=== PATIENT | female | born 1995 | race African-American/Black ===

== ENCOUNTER 2016-10-26 12:59 | Emergency (ER) | payer OTHER ==
[~2016-10-26] VITALS: Ht 160 cm; Wt 62.0 kg
[~2016-10-26 12:59] MED LIST: ALBU1AER INH
[2016-10-26 13:04] VITALS: BP 136/72; PULSE 71; RESP 16; TEMP 98.9; O2SAT 100
--- NOTE | 2016-10-26 13:16 | PD ---
Physical Exam Date Seen by Provider: Oct 26, 2016 Time Seen by Provider: 13:14 Narrative Pt is a 20 y/o female presenting to the ED with c/o lower abdominal pain. Pain is a 7/10, cramping in nature. LMP was Tuesday last week not consistent with normal cycles and lasting only 2 days. Pain has been ongoing for 1 week. She reports nausea and vomiting as well. VSS Data Data Last Documented VS Vital Signs Date Time Temp Pulse Resp B/P Pulse Ox O2 Delivery O2 Flow Rate FiO2 10/26/16 13:04 98.9 71 16 136/72 100 MDM Supervised Visit with KATE: Sophie Mascorro Oct 26, 2016 13:16
[2016-10-26] MEDS ORDERED: ADDE30TA PO (13:22)
[2016-10-26] MEDS ORDERED: ALBUAER3 INH (13:22)
--- NOTE | 2016-10-26 13:55 | PD ---
HPI Chief Complaint: Abdominal Pain Time Seen by Provider: 13:24 Travel History International Travel<30 days: No Contact w/Intl Traveler<30days: No Traveled to known affect area: No History of Present Illness HPI This is a 20-year-old female who has a history of chlamydia who presents to the emergency department with 2 weeks of lower abdominal pain described as cramping , mild, constant, associated with more white vaginal discharge than normal. She denies any fevers or chills. She denies any dysuria, urgency, frequency or diarrhea. She has felt nauseous and says she's vomited 5 times in the past 2 weeks. She bought some wristbands that she hoped would help with the nausea. She had her last menstrual cycle one week ago and it was somewhat irregular and light. PFSH Past Medical History Asthma: Yes Immunizations Current: Yes Tetanus Vaccination: < 5 Years Influenza Vaccination: No ?: Not LMP: 10/20/2016 only lasted few days and was light : 0 Past Surgical History Surgical History: No Previous Surgery Social History Alcohol Use: Yes Tobacco Use: No Substance Use: No Allergies-Medications (Allergen,Severity, Reaction): Coded Allergies: No Known Allergies (Unverified , 10/26/16) Reported Meds & Prescriptions Reported Meds & Active Scripts Active Reported Proair Hfa 8.5 GM Inh (Albuterol Sulfate) 90 Mcg/Act Aer 2 Puff INH Q4-6H PRN 108 mcg/actuation Adderall (Amphetamine-Dextroamphetamine) 30 Mg Tab 30 Mg PO DAILY Avoid late evening doses. Space doses at least 4 to 6 hours if more than once/day dosing. Review of Systems Except as stated in HPI: all other systems reviewed are Neg Physical Exam Narrative GENERAL:Well appearing, no acute distress SKIN: Focused skin assessment warm and dry. HEAD: Atraumatic. Normocephalic. EYES: Pupils equal and round. No injection or drainage. ENT: Moist mucous membranes NECK: Trachea midline. CARDIOVASCULAR: Regular rate and rhythm. No murmur appreciated. RESPIRATORY: Clear to auscultation. Breath sounds equal bilaterally. GASTROINTESTINAL: Abdomen soft, mildly tender to palpation in the suprapubic region with no rebound or guarding. ARCHIVES SPECIALIST: White thick discharge in the vault with cervical motion tenderness MUSCULOSKELETAL: No obvious deformities. NEUROLOGICAL: Awake and alert. No obvious cranial nerve deficits. Moving all extremities. PSYCHIATRIC: Appropriate mood and affect; insight and judgment normal. Data Data Last Documented VS Vital Signs Date Time Temp Pulse Resp B/P Pulse Ox O2 Delivery O2 Flow Rate FiO2 10/26/16 13:04 98.9 71 16 136/72 100 Orders Urinalysis - C+S If Indicated (10/26/16 13:49) Wet Prep Profile (10/26/16 13:49) Gc And Chlamydia Pcr (10/26/16 13:49) Labs Laboratory Tests Test 10/26/16 10/26/16 13:00 13:51 Urine Color LIGHT-YELLOW Urine Turbidity HAZY Urine pH 7.0 Urine Specific [place] 1.015 Urine Protein NEG mg/dL Urine Glucose (UA) NEG mg/dL Urine Ketones NEG mg/dL Urine Occult Blood NEG Urine Nitrite NEG Urine Bilirubin NEG Urine Urobilinogen LESS THAN 2.0 MG/DL Urine Leukocyte Esterase NEG Urine RBC 1 /hpf Urine WBC LESS THAN 1 /hpf Urine Squamous Epithelial 1 /hpf Cells Urine Amorphous Sediment RARE Urine Bacteria RARE /hpf Urine Mucus FEW /lpf Microscopic Urinalysis Comment CULT NOT INDICATED Clue Cells (Wet Prep) PRESENT Vaginal Trichomonas (Wet Prep) NONE SEEN Vaginal Yeast (Wet Prep) NONE SEEN MDM Medical Decision Making Medical Screen Exam Complete: Yes Emergency Medical Condition: Yes Interpretation(s) afebrile, no tachycardia, normotensive Differential Diagnosis Cervicitis, pelvic inflammatory disease, , ectopic , ovarian cyst Narrative Course This is a 20 year old female who presents to the emergency department with pelvic pain for 2 weeks. she is very well appearing. She does have cervical motion tenderness and discharge on exam. Given she has a history of chlamydia I think it's reasonable to cover her empirically for pelvic inflammatory disease. Given her normal vital signs and benign exam I don't think labs or imaging are warranted at this time. Pt. was discharged home. Diagnosis Primary Impression: Pelvic inflammatory disease Patient Instructions: General Instructions Additional Instructions: If you develop fever, chills, severe abdominal pain, persistent vomiting or inability to eat return to the emergency department. Your pelvic exam today did not include a Pap smear. It is important to followup with a consumer insight manager on a yearly basis to be tested for cervical cancer as we do not do that from the emergency department. If there is a concern that you have sexually transmitted disease, your partner should be tested. You should followup with your consumer insight manager or with the health department to get tested for other sexually transmitted diseases like HIV and syphilis, as we do not test for these in the emergency department Med/Other Pt SpecificInfo: Prescription(s) given Scripts Doxycycline Hyclate 100 Mg [id number] Mg PO BID #28 CAP Ref 0 Prov:Laine Bose MD 10/26/16 Disposition: 01 DISCHARGE HOME Condition: Stable Laine Bose MD Oct 26, 2016 13:55
[2016-10-26 14:21] LABS: BACTERIA, URINE RARE /hpf; BLOOD, URINE NEG (NEG); COMMENT (UR) CULT NOT INDICATED; CULTURE IF INDICATED CULT NOT INDICATED; GLUCOSE,URINE NEG (NEG); KETONE, URINE NEG (NEG); MUCUS URINE FEW /lpf (OCC); NITRITE,URINE NEG (NEG); SQUAMOUS EPITHELIAL CELL URINE 1 /hpf (0-5); URINE COLOR LIGHT-YELLOW (YELLW/STRAW)
[2016-10-26] MEDS ORDERED: DOXY100C PO (14:34)
[2016-10-26] MEDS ORDERED: cefTRIAXone 250 MG VIAL IM ONE (14:45)
[2016-10-26] MEDS ORDERED: LIDOCAINE HCL 1% 50 ML VIAL IM ONE (14:45)
[2016-10-26 15:23] VITALS: BP 125/72
[2016-10-26 16:06] LABS: CHLAMYDIA PCR NOT DETECTED (NOT DETECT); NEISSERIA PCR NOT DETECTED (NOT DETECT)
== END 2016-10-26 15:24 | disposition home or self-care (01) ==
LOC: NEPD 12:59
DX: N73.9 Female pelvic inflammatory disease, unspecified (principal)
CPT/HCPCS: 81001; 87210; 87491; 87591; 96372; 99284; J0696

== ENCOUNTER 2017-07-17 15:49 | Emergency (ER) | payer OTHER ==
[~2017-07-17] VITALS: Ht 160 cm; Wt 61.0 kg
[~2017-07-17 15:49] MED LIST changes: +ADDE30TA PO; -ALBU1AER INH; +ALBUAER3 INH; +DOXY100C PO
[2017-07-17 15:50] VITALS: BP 141/76; PULSE 88; RESP 16; TEMP 98.3; O2SAT 100
--- NOTE | 2017-07-17 16:38 | PD ---
Physical Exam Time Seen by Provider: 16:36 Narrative 21yo F, approximately 11 weeks c/o lower abdominal pain 3 weeks. + Vomiting. Denies fevers. + Abnormal vaginal discharge. No vaginal bleeding. Denies dysuria. LMP April 29. Patient seen in triage. VS reviewed. Awaiting bed placement. See next providers note for final patient disposition. Data Data Last Documented VS Vital Signs Date Time Temp Pulse Resp B/P (MAP) Pulse Ox O2 Delivery O2 Flow Rate FiO2 07/17/17 15:50 98.3 88 16 141/76 (97) 100 MDM Supervised Visit with KATE: Alysha Jean Baptiste Jul 17, 2017 16:37
[2017-07-17] MEDS ORDERED: ACETAMINOPHEN 325 MG TAB PO ONE (17:30)
--- NOTE | 2017-07-17 17:39 | PD ---
HPI Chief Complaint: Related Problem Time Seen by Provider: 16:36 Travel History International Travel<30 days: No Contact w/Intl Traveler<30days: No Traveled to known affect area: No History of Present Illness HPI I saw this patient in triage. 21yo F, approximately 11 weeks c/o lower abdominal pain 3 weeks. + Vomiting. Denies fevers. + Abnormal vaginal discharge. No vaginal bleeding. Denies dysuria. LMP April 29. She does not have an vibratory pile driver. Just recently moved to this area. Pain is sometimes relieved with eating, but then it comes back. No known aggravating factors. Symptoms are moderate in severity. No known allergies. History of asthma. Has no other medical complaints. No other modifying factors or associated signs and symptoms. PFSH Past Medical History Asthma: Yes Immunizations Current: Yes ?: LMP: 04/29/17 : 0 Social History Alcohol Use: Yes Tobacco Use: No Substance Use: No Allergies-Medications (Allergen,Severity, Reaction): Coded Allergies: No Known Allergies (Unverified Adverse Reaction, Unknown, 07/17/17) Reported Meds & Prescriptions Reported Meds & Active Scripts Active Doxycycline Hyclate 100 Mg Cap 100 Mg PO BID Reported Proair Hfa 8.5 GM Inh (Albuterol Sulfate) 90 Mcg/Act Aer 2 Puff INH Q4-6H PRN 108 mcg/actuation Adderall (Amphetamine-Dextroamphetamine) 30 Mg Tab 30 Mg PO DAILY Avoid late evening doses. Space doses at least 4 to 6 hours if more than once/day dosing. Review of Systems Except as stated in HPI: all other systems reviewed are Neg Physical Exam Narrative GENERAL: Well-nourished, well-developed black female female patient, in no acute distress; afebrile, nontoxic-appearing SKIN: Warm and dry. HEAD: Atraumatic. Normocephalic. EYES: Pupils equal and round. No scleral icterus. No injection or drainage. ENT: Mucous membranes pink and moist. NECK: Trachea midline. No lymphadenopathy. CARDIOVASCULAR: Regular rate and rhythm. No murmur appreciated. RESPIRATORY: No accessory muscle use. Clear to auscultation. Breath sounds equal bilaterally. GASTROINTESTINAL: Abdomen soft, non-tender, nondistended. Pelvic region tender to palpation. Hepatic and splenic margins not palpable. No guarding, rigidity, rebound tenderness. PELVIC: Exam done in the presence of a nurse. Speculum exam reveals edematous and erythematous cervix with creamy white, thick, mucopurulent, foul-smelling discharge. Bimanual exam reveals no palpable masses or adnexa tenderness, no uterine tenderness. No cervical motion tenderness. BACK: No CVA tenderness. MUSCULOSKELETAL: No obvious deformities. No clubbing. No cyanosis. No edema. NEUROLOGICAL: Awake and alert. No obvious cranial nerve deficits. Motor grossly within normal limits. Normal speech. PSYCHIATRIC: Appropriate mood and affect; insight and judgment normal. Data Data Last Documented VS Vital Signs Date Time Temp Pulse Resp B/P (MAP) Pulse Ox O2 Delivery O2 Flow Rate FiO2 07/17/17 20:54 07/17/17 18:02 18 07/17/17 15:50 98.3 88 100 Orders Orders Urinalysis - C+S If Indicated (07/17/17 16:38) Ed Urine Pregnancytest Poc (07/17/17 16:38) Beta Hcg (Quant/Titer) (07/17/17 17:30) Gc And Chlamydia Pcr (07/17/17 17:30) Us Pelvis (Ques Preg/Ectopic) (07/17/17 ) Wet Prep Profile (07/17/17 17:30) Acetaminophen (Tylenol) (07/17/17 17:30) Ceftriaxone Inj (Rocephin Inj) (07/17/17 18:45) Lidocaine 1% Inj (50 Ml) (Xylocaine 1% I (07/17/17 18:45) Ondansetron Odt (Zofran Odt) (07/17/17 18:45) Azithromycin (Zithromax) (07/17/17 18:45) Sodium Chlor 0.9% 1000 Ml Inj (Ns 1000 M (07/17/17 20:15) Ed Discharge Order (07/17/17 20:47) Labs Laboratory Tests Test 07/17/17 17:43 07/17/17 18:29 07/17/17 18:47 Human Chorionic Gonadotropin, Quant 55038 MIU/ML Clue Cells (Wet Prep) NONE SEEN Vaginal Trichomonas (Wet Prep) NONE SEEN Vaginal Yeast (Wet Prep) NONE SEEN Chlamydia trachomatis DNA (PCR) NOT DETECTED Neisseria gonorrhoeae DNA (PCR) NOT DETECTED Urine Color YELLOW Urine Turbidity HAZY Urine pH 6.5 Urine Specific [place] 1.029 Urine Protein TRACE mg/dL Urine Glucose (UA) NEG mg/dL Urine Ketones 40 mg/dL Urine Occult Blood TRACE Urine Nitrite NEG Urine Bilirubin NEG Urine Urobilinogen LESS THAN 2.0 MG/DL Urine Leukocyte Esterase NEG Urine RBC 8 /hpf Urine WBC 1 /hpf Urine Squamous Epithelial Cells 7 /hpf Urine Mucus MANY /lpf Microscopic Urinalysis Comment CULT NOT INDICATED MDM Medical Decision Making Medical Screen Exam Complete: Yes Emergency Medical Condition: Yes Medical Record Reviewed: Yes Differential Diagnosis UTI, pelvic inflammatory disease, gonorrhea, chlamydia, threatened miscarriage, ectopic Narrative Course 21-year-old feel, approximately 11 weeks , with lower abdominal cramping 3 weeks. Positive abnormal vaginal discharge. Denies vaginal bleeding. UPT positive. Urinalysis, wet prep, chlamydia, gonorrhea, Tylenol, pelvic ultrasound ordered. 1836: Pelvic exam concludes cervicitis. Patient will be empirically treated with Rocephin, azithromycin in the ER. 1900: REport given to Dagmar Dasilva DNP. See her not for final patient disposition. Diagnosis Primary Impression: Cervicitis Alysha Escobar Jul 17, 2017 17:39
[2017-07-17] MEDS ORDERED: ONDANSETRON ODT 4 MG TAB PO ONE (18:45)
[2017-07-17] MEDS ORDERED: AZITHROMYCIN 250 MG TAB PO ONE (18:45)
[2017-07-17] MEDS ORDERED: LIDOCAINE HCL 1% 50 ML VIAL IM ONE (18:45)
[2017-07-17] MEDS ORDERED: cefTRIAXone 250 MG VIAL IM ONE (18:45)
[2017-07-17 19:04] LABS: BILIRUBIN, URINE NEG (NEG); BLOOD, URINE TRACE (NEG); GLUCOSE,URINE NEG (NEG); KETONE, URINE 40 mg/dL (NEG); MUCUS URINE MANY /lpf (OCC); NITRITE,URINE NEG (NEG); PH, URINE 6.5 (5.0-8.5); SQUAMOUS EPITHELIAL CELL URINE 7 /hpf (0-5); URINE COLOR YELLOW (YELLW/STRAW); URINE LEUKOCYTE ESTERASE NEG (NEG)
--- NOTE | 2017-07-17 19:21 | RADRPT ---
EXAM DATE/TIME: 07/17/2017 17:54 [facility] COMPARISON: No previous studies available for comparison. INDICATIONS : Pelvic pain. LAB(S): Beta-hC MEDICAL HISTORY : . Asthma. SURGICAL HISTORY : None. ENCOUNTER: Initial ACUITY: 1 day PAIN SCORE: 4/10 LOCATION: Bilateral pelvis MEASUREMENTS: UTERUS: 10.3 x 7.2 x 5.4 cm ENDOMETRIAL STRIPE: >20 mm RIGHT OVARY: 2.5 x 1.7 x 1.4 cm LEFT OVARY: 2.6 x 1.5 x 1.8 cm FREE FLUID: No CROWN RUMP LENGTH: 4.1 cm = 11 WKS 0 DAYS FHR: 155 BPM FINDINGS: UTERUS: Gestational sac a yolk sac and pole seen in the uterine cavity. [place]-rump length is 4 cm, nico esponds to a gestational age of 10 weeks 6 days. No subchorionic hemorrhage or other acute abnormalit y demonstrated. heart tones are demonstrated. RIGHT OVARY: Ovary contains no mass or significant cystic lesion. LEFT OVARY: Ovary contains no mass or significant cystic lesion. MISCELLANEOUS: No free fluid. CONCLUSION: No acute abnormality. Single, viable intrauterine at 10 weeks 6 days gestational age. Vidal Del Valle MD on July 17, 2017 at 19:17 Board Certified Radiologist. This report was verified electronically.
[2017-07-17] MEDS ORDERED: SODIUM CHLOR 0.9% 1000 ML INJ 1,000 ML IV ONE (20:15)
--- NOTE | 2017-07-17 20:47 | PD ---
Physical Exam Time Seen by Provider: 20:46 Narrative Please refer to previous providers documentation for details during the patient' s current visit. Data Data Last Documented VS Vital Signs Date Time Temp Pulse Resp B/P (MAP) Pulse Ox O2 Delivery O2 Flow Rate FiO2 07/17/17 20:54 07/17/17 18:02 18 07/17/17 15:50 98.3 88 100 Orders Orders Urinalysis - C+S If Indicated (07/17/17 16:38) Ed Urine Pregnancytest Poc (07/17/17 16:38) Beta Hcg (Quant/Titer) (07/17/17 17:30) Gc And Chlamydia Pcr (07/17/17 17:30) Us Pelvis (Ques Preg/Ectopic) (07/17/17 ) Wet Prep Profile (07/17/17 17:30) Acetaminophen (Tylenol) (07/17/17 17:30) Ceftriaxone Inj (Rocephin Inj) (07/17/17 18:45) Lidocaine 1% Inj (50 Ml) (Xylocaine 1% I (07/17/17 18:45) Ondansetron Odt (Zofran Odt) (07/17/17 18:45) Azithromycin (Zithromax) (07/17/17 18:45) Sodium Chlor 0.9% 1000 Ml Inj (Ns 1000 M (07/17/17 20:15) Ed Discharge Order (07/17/17 20:47) Labs Laboratory Tests Test 07/17/17 17:43 07/17/17 18:29 07/17/17 18:47 Human Chorionic Gonadotropin, Quant [id number] MIU/ML Clue Cells (Wet Prep) NONE SEEN Vaginal Trichomonas (Wet Prep) NONE SEEN Vaginal Yeast (Wet Prep) NONE SEEN Chlamydia trachomatis DNA (PCR) NOT DETECTED Neisseria gonorrhoeae DNA (PCR) NOT DETECTED Urine Color YELLOW Urine Turbidity HAZY Urine pH 6.5 Urine Specific [place] 1.029 Urine Protein TRACE mg/dL Urine Glucose (UA) NEG mg/dL Urine Ketones 40 mg/dL Urine Occult Blood TRACE Urine Nitrite NEG Urine Bilirubin NEG Urine Urobilinogen LESS THAN 2.0 MG/DL Urine Leukocyte Esterase NEG Urine RBC 8 /hpf Urine WBC 1 /hpf Urine Squamous Epithelial Cells 7 /hpf Urine Mucus MANY /lpf Microscopic Urinalysis Comment CULT NOT INDICATED [facility] Medical Record Reviewed: Yes Supervised Visit with KATE: No Narrative Course Patient is signed out to me with ultrasound and lab work pending. Last Impressions Pelvis Ultrasound 07/17/17 0000 Signed Impressions: Service Date/Time: Monday, July 17, 2017 17:54 - CONCLUSION: No acute abnormality. Single, viable intrauterine at 10 weeks 6 days gestational age. Vidal Del Valle MD Laboratory Tests Test 07/17/17 17:43 07/17/17 18:29 07/17/17 18:47 Human Chorionic Gonadotropin, Quant [id number] MIU/ML Clue Cells (Wet Prep) NONE SEEN Vaginal Trichomonas (Wet Prep) NONE SEEN Vaginal Yeast (Wet Prep) NONE SEEN Chlamydia trachomatis DNA (PCR) NOT DETECTED Neisseria gonorrhoeae DNA (PCR) NOT DETECTED Urine Color YELLOW Urine Turbidity HAZY Urine pH 6.5 Urine Specific [place] 1.029 Urine Protein TRACE mg/dL Urine Glucose (UA) NEG mg/dL Urine Ketones 40 mg/dL Urine Occult Blood TRACE Urine Nitrite NEG Urine Bilirubin NEG Urine Urobilinogen LESS THAN 2.0 MG/DL Urine Leukocyte Esterase NEG Urine RBC 8 /hpf Urine WBC 1 /hpf Urine Squamous Epithelial Cells 7 /hpf Urine Mucus MANY /lpf Microscopic Urinalysis Comment CULT NOT INDICATED Findings are discussed with patient. She is discharged home to follow-up with an roller structural mill. She agrees to return immediately with any acute worsening symptoms. Diagnosis Primary Impression: Cervicitis Additional Impression: Normal IUP (intrauterine ) on ultrasound Qualified Codes: Z34.91 - Encounter for supervision of normal , unspecified, first trimester Referrals: Manager Grant Primary Care Physician Patient Instructions: Cervicitis (ED), General Instructions, (ED) Additional Instruction: Follow up with REFRIGERATION TECHNICIAN Return immediately to the emergency department with any acute worsening of symptoms Med/Other Pt SpecificInfo: No Change to Meds Disposition: 01 DISCHARGE HOME Condition: Stable DasilvaDagmar dempsey HECTOR Jul 17, 2017 20:47
== END 2017-07-17 20:55 | disposition home or self-care (01) ==
LOC: NEPD 15:49
DX: O23.511 Infections of cervix in pregnancy, first trimester (principal); O21.9 Vomiting of pregnancy, unspecified; J45.909 Unspecified asthma, uncomplicated; Z3A.10 10 weeks gestation of pregnancy; Z34.91 Encounter for supervision of normal pregnancy, unspecified, first trimester
CPT/HCPCS: 76700; 81001; 84702; 84703; 87210; 87491; 87591; 96372; 99285; J0696; J7030

== ENCOUNTER 2017-08-23 20:54 | Emergency (ER) | payer OTHER ==
--- NOTE | 2017-08-23 22:32 | PD ---
HPI Chief Complaint Abdominal pain Travel History International Travel<30 Days: No Contact w/Intl Traveler<30Days: No Known Affected Area: No History of Present Illness HPI 21-year-old , IUP at 16.1 care complicated by no care, asthma The patient presents complaining of a one-week history of abdominal pain. She described this to the nurse as dull and constant. She described to me as intermittent lasting for about 2 hours at a time and dull in nature. There are no aggravating or alleviating factors. There are no attempted treatments. She denies any leaking of fluid or vaginal bleeding. She denies any urinary symptoms. She denies any fever/chills/vomiting, but reports occasional nausea if she has needing or in the morning. She denies any nausea at this time. She has not yet felt movements. She denies any painful contractions or uterine cramping. Weeks Gestation: 16 Para: 0 : 1 History Past Medical History Narrative Medical Asthma Obstetric History Obstetric History Past Surgical History Surgical History: No Previous Surgery Family History Family History: Negative Social History Alcohol Use: No Tobacco Use: No Substance Abuse: No Allergies-Medications (Allergen,Severity, Reaction): Coded Allergies: No Known Allergies (Unverified Adverse Reaction, Unknown, 07/17/17) Home Meds Active Scripts Doxycycline Hyclate (Doxycycline Hyclate) 100 Mg Cap, 100 MG PO BID for Infection, #28 CAP 0 Refills Prov:Laine Bose MD 10/26/16 Reported Medications Albuterol 8.5 GM Inh (Proair Hfa 8.5 GM Inh) 90 Mcg/Act Aer, 2 PUFF INH Q4-6H Y for SHORTNESS OF BREATH, #1 INHALER 0 Refills 108 mcg/actuation 10/26/16 Amphetamine-Dextroamphetamine (Adderall) 30 Mg Tab, 30 MG PO DAILY for Hyperactivity Control, #30 TAB 0 Refills Avoid late evening doses. Space doses at least 4 to 6 hours if more than once/day dosing. 10/26/16 Review of Systems Except as stated in HPI: all other systems reviewed are Neg Physical Exam Narrative GENERAL: Well-nourished, well-developed patient. SKIN: Warm and dry. HEAD: Normocephalic and atraumatic. EYES: No scleral icterus. No injection or drainage. ENT: No nasal drainage noted. Mucous membranes pink. Airway patent. NECK: Supple, trachea midline. No JVD. CARDIOVASCULAR: Regular rate and rhythm without murmurs, gallops, or rubs. RESPIRATORY: Breath sounds equal bilaterally. No accessory muscle use. BREASTS: Deferred ABDOMEN/GI: Abdomen soft, non-tender, bowel sounds present, no rebound, no guarding Gravid GENITOURINARY: External Genitalia: intact and normal in appearance. Normal BUS. No cervical or vaginal masses noted. Grossly normal rugae and physiologic discharge. SVE closed/thick/high/posterior. FHT's: heart tones in the 160s and appropriate for gestational age EXTREMITIES: No cyanosis or edema. BACK: Nontender without obvious deformity. NEUROLOGICAL: Awake and alert. Motor and sensory grossly within normal limits. Five out of 5 muscle strength in all muscle groups. Normal speech. Musculoskeletal: Grossly normal range of motion, gait, muscle strength Psychiatric: Grossly normal memory and affect MDM Plan Assessment/plan: 1. IUP at 16.1 2. Abdominal pain: No evidence of obstetrical etiology. No evidence of threatened AB or labor. Recommended transfer of patient to ED for further evaluation of abdominal pain. Patient refused transfer. Strict AB/ labor precautions. 3. Urine dip: Negative 4. Asthma 5. Recommended patient establish care, contact information given 6. Follow-up with OB provider in 2-3 days as directed or sooner if needed Diagnosis Diagnosis: Primary Impression: 16 weeks gestation of Additional Impression: Abdominal pain affecting , antepartum Disposition: 01 DISCHARGE HOME Condition: Stable Patient Instructions: General Instructions, Labor (ED), Movement (ED), Abdominal Pain in (ED) Departure Forms: Tests/Procedures Gunjan Luciano MD Aug 23, 2017 22:32
== END 2017-08-23 22:37 | disposition home or self-care (01) ==
LOC: HOBED 20:54
DX: O26.892 Other specified pregnancy related conditions, second trimester (principal); R10.9 Unspecified abdominal pain; O99.512 Diseases of the respiratory system complicating pregnancy, second trimester; J45.909 Unspecified asthma, uncomplicated; Z3A.16 16 weeks gestation of pregnancy
CPT/HCPCS: 99284